=== PATIENT | female | born 1985 | race Hispanic/Latino ===

== ENCOUNTER 2021-10-06 09:42 | Outpatient (CLI) | payer OTHER ==
[2021-10-06 17:23] LABS: SARS-CoV-2 PCR by NAA Not Detected (NotDetected)
== END 2021-10-06 09:43 | disposition home or self-care (01) ==
LOC: CSHLAB 09:42
PROVIDERS: ATTEND Family Medicine
DX: Z01.812 Encounter for preprocedural laboratory examination (principal); Z20.822 Contact with and (suspected) exposure to COVID-19
CPT/HCPCS: U0003; U0005

== ENCOUNTER 2021-10-10 19:15 | Inpatient (IN) | payer MEDICAID, OTHER ==
[~2021-10-10 19:15] MED LIST: Bupivacaine 0.25% HCL 30 ML VIAL ONE
[2021-10-10] MEDS ORDERED: Carboprost 250 MCG/ML AMP IM PRN (23:41)
[2021-10-10] MEDS ORDERED: HYDROcodone/Acetaminophen 5/325 mg Tablet PO PRN (23:41)
[2021-10-10] MEDS ORDERED: Ibuprofen 800 MG TAB PO PRN (23:41)
[2021-10-10] MEDS ORDERED: Butorphanol Tartrate 1 MG/ML VIAL SLOW IVP PRN (23:41)
[2021-10-10] MEDS ORDERED: Promethazine HCl 25 MG/ML VIAL IM PRN (23:41)
[2021-10-10] MEDS ORDERED: Methylergonovine 0.2 MG/ML VIAL IM PRN (23:41)
[2021-10-10] MEDS ORDERED: Diphenoxylate HCl/Atropine Tablet PO PRN (23:41)
[2021-10-10] MEDS ORDERED: Acetaminophen 500 MG TAB PO PRN (23:41)
[2021-10-10] MEDS ORDERED: Lidocaine 1% (PF) 30 ML VIAL SC PRN (23:41)
[2021-10-10] MEDS ORDERED: Misoprostol 200 MCG TAB PR PRN (23:41)
[2021-10-10] MEDS ORDERED: hydrALAZINE 20 MG/ML VIAL SLOW IVP PRN (23:41)
[2021-10-10] MEDS ORDERED: Ondansetron PF 4 MG/2 ML Vial IVP PRN (23:41)
[2021-10-11 00:15] LABS: Hemoglobin 11.5 g/dL (12.0-15.5); Mean Corpuscular HGB CONC 33.7 g/dL (32.0-36.0); Mean Corpuscular Hemoglobin 28.8 pg (27.0-33.0); Mean Corpuscular Volume 85.3 fl (81.6-98.3); Mean Platelet Volume 11.1 fl (7.4-10.4); Platelet Count 191 10x3/uL (150-450); White Blood Cell (WBC) Count 7.5 10x3/uL (3.5-10.5)
[2021-10-11 00:56] LABS: Hep B Surf Ag Non-Reactive S/CO (NonReactive)
[2021-10-11 00:57] LABS: Syphilis Antibody Nonreactive (Nonreactive); Syphilis Antibody Index 0.03 S/CO (<1.00 Non-Reactive)
[2021-10-11 01:15] LABS: HBSAg Index 0.18 S/CO (0-0.99)
[2021-10-11] MEDS: Misoprostol 100 MCG TAB PO SCH ×4 (01:26→15:15)
[2021-10-11 01:47] VITALS: BMI 28.5
[2021-10-11] MEDS ORDERED: Fentanyl 2 mcg/Bup 0.1% Cadd 100 ML ONE (11:27)
[2021-10-11] MEDS: Lactated Ringer's 1,000 ML IV SCH ×3 (11:49→17:30)
[2021-10-11] MEDS ORDERED: Hydrocerin (Eucerin) Cream 120 gm Jar TOP PRN (14:05)
[2021-10-11] MEDS ORDERED: diphenhydrAMINE 50 MG/ML VIAL IVP PRN (14:05)
[2021-10-11] MEDS ORDERED: Promethazine HCl 25 MG/ML VIAL IM PRN (14:05)
[2021-10-11] MEDS ORDERED: Ondansetron PF 4 MG/2 ML Vial IVP PRN ×2 (14:05→20:25)
[2021-10-11] MEDS ORDERED: Naloxone HCl 0.4 mg/ml Vial IVP PRN ×2 (14:05)
[2021-10-11] MEDS ORDERED: ePHEDrine Sulfate 50 MG/10 ML VIAL SLOW IVP PRN (14:05)
[2021-10-11] MEDS ORDERED: Lactated Ringer's 500 ML IV PRN (14:05)
[2021-10-11] MEDS ORDERED: Acetaminophen 325 MG TAB PO PRN (14:05)
[2021-10-11] MEDS ORDERED: Fentanyl 2 mcg/Bupivacaine 0.1% Cassette 100 ML EPIDURAL SCH (14:15)
[2021-10-11] MEDS ORDERED: Communication Order-Pharmacy FS SCH (14:15)
[2021-10-11] MEDS: NS w/ Oxytocin 30 units 500 ML IV SCH ×2 (14:16→17:30)
[2021-10-11] MEDS ORDERED: Methylergonovine 0.2 MG/ML VIAL ONE (16:09)
[2021-10-11] MEDS ORDERED: Misoprostol 200 MCG TAB ONE (16:09)
[2021-10-11] MEDS ORDERED: Carboprost 250 MCG/ML AMP ONE ×2 (16:10→17:27)
[2021-10-11] MEDS: Tranexamic Acid 1,000 MG/10 ML VIAL ONE ×2 (17:23→17:38)
[2021-10-11] MEDS ORDERED: Carboprost 250 MCG/ML AMP IM PRN (17:31)
[2021-10-11] MEDS ORDERED: Tranexamic Acid 1,000 MG/10 ML VIAL ONE (17:35)
[2021-10-11] MEDS ORDERED: Tranexamic Acid 1,000 MG in Sodium Chloride 0.9% 250 ML 250 ML IVPB SCH (17:45)
[2021-10-11] MEDS ORDERED: Lanolin Ointment 7 GM TUBE TOP PRN (20:25)
[2021-10-11] MEDS ORDERED: Milk Of Magnesia 30 ML UDCUP PO PRN (20:25)
[2021-10-11] MEDS ORDERED: hydrALAZINE 20 MG/ML VIAL SLOW IVP PRN (20:25)
[2021-10-11] MEDS ORDERED: Boostrix 0.5 ML (Tdap) VIAL IM ONE (20:25)
[2021-10-11] MEDS ORDERED: Bisacodyl 10 MG SUPP PR PRN (20:25)
[2021-10-11] MEDS ORDERED: Diphenoxylate HCl/Atropine Tablet PO PRN (20:25)
[2021-10-11] MEDS ORDERED: diphenhydrAMINE 25 MG CAP PO PRN (20:25)
[2021-10-11] MEDS: Ibuprofen 800 MG TAB PO SCH (21:33)
[2021-10-11] MEDS: Docusate Calcium (SURFAK) 240 MG CAP PO SCH (21:35)
[2021-10-12] MEDS: HYDROcodone/Acetaminophen 5/325 mg Tablet PO PRN ×3 (00:02→17:28)
[2021-10-12] MEDS: Ibuprofen 800 MG TAB PO SCH ×2 (05:26→14:36)
[2021-10-12] MEDS: Ferrous Sulfate 325 MG TAB PO SCH ×2 (07:36→15:49)
[2021-10-12] MEDS ORDERED: Prenatal Vitamin 1 TAB PO SCH (09:00)
[2021-10-12] MEDS: Docusate Calcium (SURFAK) 240 MG CAP PO SCH (09:24)
[2021-10-12 20:23] VITALS: BP 106/53; TEMP 97.7
== END 2021-10-12 20:50 | disposition home or self-care (01) | DRG 807 ==
LOC: CSHLD 23:10 → CSHPP 10-11 20:00
PROVIDERS: ADMIT Family Medicine; ATTEND Family Medicine
PROC: 10E0XZZ Delivery of Products of Conception, External Approach (ICD-10-PCS; principal; 2021-10-10)
DX: O69.81X0 Labor and delivery complicated by cord around neck, without compression, not applicable or unspecified (principal); Z37.0 Single live birth; O75.89 Other specified complications of labor and delivery; Z3A.39 39 weeks gestation of pregnancy; Z20.822 Contact with and (suspected) exposure to COVID-19; M32.9 Systemic lupus erythematosus, unspecified
CPT/HCPCS: 36415; 51702; 85027; 86780; 86850; 86900; 86901; 87340; J2210; J2590; J7120; S0020